=== PATIENT | male | born 1980 | race Caucasian/White ===

== ENCOUNTER 2016-09-29 06:22 | Emergency (ER) | payer BC ==
[2016-09-29] MEDS ORDERED: Ketorolac 60 MG/2 ML SDV IM ONE (06:44)
--- NOTE | 2016-09-29 06:44 | EDM.PDOC ---
[id number] Complaint: LT FOOT PAIN Time Seen by Provider: 09/29/16 06:43 Source of Information: Reports: Patient History Limitations: Reports: No Limitations - History of Present Illness INITIAL COMMENTS - FREE TEXT/NARRATIVE: 35 yo M who presents to the ER with painful swollen Left ankle. He has h/o Gout on Allopurinol. Presents to the ER with painful swollen Left ankle which has been ongoing for the past 3-4 days. He does not recall any trauma or Injuries. No fever, chills. Presented to the ER on account of worsening of symptoms Onset: Gradual Duration: Day(s): (started 3-4 days), Getting Worse Location: Reports: Lower Extremity, Left Quality: Reports: Sharp Worsens with: Reports: None, Movement Associated Symptoms: Reports: No Other Symptoms - Related Data Allergies Allergy/AdvReac Type Severity Reaction Status Date / Time No Known Allergies Allergy Verified 09/29/16 06:38 Home Meds: Home Meds Allopurinol [Zyloprim] 100 mg PO DAILY 09/29/16 [History] Aspirin [Ecotrin] 81 mg PO DAILY 09/29/16 [History] Hydrocodone/Acetaminophen [Lorcet 5-325 mg Tablet] 1 each PO .Q6H PRN #20 tablet 09/29/16 [Rx] Indomethacin 50 mg PO TID #15 capsule 09/29/16 [Rx] Ubidecarenone [Coq-10] 1 tab PO DAILY 09/29/16 [History] atorvaSTATin [Lipitor] 20 mg PO BEDTIME 09/29/16 [History] Review of Systems - Review of Systems Review Of Systems: See Below Constitutional: Reports: No Symptoms Eyes: Reports: No Symptoms Ears: Reports: No Symptoms Nose: Reports: No Symptoms Mouth/Throat: Reports: No Symptoms Respiratory: Reports: No Symptoms Cardiovascular: Reports: No Symptoms GI/Abdominal: Reports: No Symptoms Genitourinary: Reports: No Symptoms Musculoskeletal: Reports: Joint Swelling Skin: Reports: No Symptoms Neurological: Reports: No Symptoms Psychiatric: Reports: No Symptoms ED EXAM, GENERAL - Physical Exam Exam: See Below Exam Limited By: No Limitations General Appearance: Alert, WD/WN, No Apparent Distress Eye Exam: Bilateral Eye: EOMI Ears: Normal External Exam, Normal Canal, Normal TMs Ear Exam: Bilateral Ear: Canal Normal Nose: Normal Inspection, Normal Mucosa, No Blood Throat/Mouth: Normal Inspection, Normal Lips, Normal Teeth, Normal Gums, Normal Oropharynx Head: Atraumatic, Normocephalic Neck: Normal Inspection, Supple, Non-Tender, Full Range of Motion Respiratory/Chest: No Respiratory Distress, Lungs Clear, Normal Breath Sounds, No Accessory Muscle Use Cardiovascular: Normal Peripheral Pulses, Regular Rate, Rhythm, No Edema, No JVD , No Murmur GI/Abdominal: Normal Bowel Sounds, Soft, Non-Tender, No Organomegaly, No Distention (Male) Exam: Deferred Rectal (Males) Exam: Deferred Back Exam: Normal Inspection, Full Range of Motion Extremities: Normal Inspection, Normal Range of Motion, Non-Tender, No Pedal Edema, Normal Capillary Refill, Other (swollen Left ankle) Neurological: Alert, Oriented, CN II-XII Intact, Normal Cognition, Normal Gait, Normal Reflexes, No Motor/Sensory Deficits Psychiatric: Normal Affect, Normal Mood Skin Exam: Warm Lymphatic: No Adenopathy Course - Vital Signs Last Recorded V/S: Last Vital Signs Temp 36.6 C 09/29/16 06:25 Pulse 88 09/29/16 08:30 Resp 18 09/29/16 08:30 BP 156/71 H 09/29/16 08:30 Pulse Ox 100 09/29/16 08:30 - Orders/Labs/Meds Orders: Active Orders 24 hr Category Date Time Status Ankle Min 3V Lt [CR] Stat Exams 09/29/16 07:04 Taken Labs: Laboratory Tests 09/29/16 Range/Units 07:04 Uric Acid 7.0 (3.0-7.0) mg/dL Meds: Medications Discontinued Medications Generic Name Dose Route Start Last Admin Trade Name Freq PRN Reason Stop Dose Admin Ketorolac Tromethamine 60 mg 09/29/16 06:44 09/29/16 07:27 Toradol IM 09/29/16 06:45 60 mg ONETIME ONE Administration Departure - Departure Time of Disposition: 09:20 Disposition: Home, Self-Care 01 Condition: Good Clinical Impression: Left ankle sprain Qualifiers: Encounter type: initial encounter Involved ligament of ankle: other ligament Qualified Code(s): S93.492A - Sprain of other ligament of left ankle, initial encounter - Discharge Information Prescriptions: Hydrocodone/Acetaminophen [Lorcet 5-325 mg Tablet] 1 each PO .Q6H PRN #20 tablet PRN Reason: Pain Indomethacin 50 mg PO TID #15 capsule Instructions: Ankle Sprain, Ankle Pain Referrals: PCP,None [Primary Care Provider] - Forms: ED Department Discharge Additional Instructions: Follow with PCP Hydrocodone for pain as needed Return if symptoms worsen Call your Physician or Return to Emergency Department if: * Your condition worsens in any way. * You develop fever greater than 100.4. * You have vomitting that does not stop with medications. * You have pain that is not controlled with medications. - Problem List & Annotations (1) Left ankle sprain SNOMED Code(s): 07515508 Code(s): S93.402A - SPRAIN OF UNSPECIFIED LIGAMENT OF LEFT ANKLE, INIT ENCNTR Status: Acute Qualifiers: Encounter type: initial encounter Involved ligament of ankle: other ligament Qualified Code(s): S93.492A - Sprain of other ligament of left ankle , initial encounter - Problem List Review Problem List Initiated/Reviewed/Updated: Yes - My Orders Last 24 Hours: My Active Orders 09/29/16 07:04 Ankle Min 3V Lt [CR] Stat - Assessment/Plan Last 24 Hours: My Active Orders 09/29/16 07:04 Ankle Min 3V Lt [CR] Stat
[2016-09-29 08:52] VITALS: BP 156/71
== END 2016-09-29 08:40 | disposition home or self-care (01) ==
LOC: FB.ED 06:22
DX: S93.492A Sprain of other ligament of left ankle, initial encounter (principal); Z79.899 Other long term (current) drug therapy; X58.XXXA Exposure to other specified factors, initial encounter
CPT/HCPCS: 36415; 73610; 84550; 96372; 99284; J1885